=== PATIENT | male | born 1950 | race Caucasian/White ===

== ENCOUNTER → 2021-07-13 | Day surgery (SDC) | payer MEDICARE, OTHER ==
[~2021-07-13] MED LIST: ASPIRIN EC81 MG PO; GLUCOPHAGE 850850 MG PO; SIMVASTATIN20 MG PO; SPIRONOLACTONE25 MG PO; ZETIA10 MG PO
== END | disposition home or self-care (01) ==
LOC: OR 06:37
DX: D12.2 Benign neoplasm of ascending colon (principal); D12.4 Benign neoplasm of descending colon; D12.3 Benign neoplasm of transverse colon; D12.8 Benign neoplasm of rectum; K59.09 Other constipation; K29.70 Gastritis, unspecified, without bleeding; K64.1 Second degree hemorrhoids; K63.3 Ulcer of intestine; B96.81 Helicobacter pylori [H. pylori] as the cause of diseases classified elsewhere; Z20.822 Contact with and (suspected) exposure to COVID-19; R63.4 Abnormal weight loss; I25.10 Atherosclerotic heart disease of native coronary artery without angina pectoris; I50.9 Heart failure, unspecified; E78.5 Hyperlipidemia, unspecified; J44.9 Chronic obstructive pulmonary disease, unspecified; E11.9 Type 2 diabetes mellitus without complications; F17.200 Nicotine dependence, unspecified, uncomplicated; E78.00 Pure hypercholesterolemia, unspecified; Z95.5 Presence of coronary angioplasty implant and graft; Z68.32 Body mass index [BMI] 32.0-32.9, adult; Z79.82 Long term (current) use of aspirin; Z79.84 Long term (current) use of oral hypoglycemic drugs; Z79.899 Other long term (current) drug therapy
CPT/HCPCS: 82962; J2704; J7040; U0002

== ENCOUNTER → 2021-07-17 | Outpatient (CLI) | payer MEDICARE, OTHER | LOC: CT 07-13 11:00 | DX: K85.90 Acute pancreatitis without necrosis or infection, unspecified (principal); K86.9 Disease of pancreas, unspecified; K86.89 Other specified diseases of pancreas; I82.890 Acute embolism and thrombosis of other specified veins; R93.89 Abnormal findings on diagnostic imaging of other specified body structures; N28.9 Disorder of kidney and ureter, unspecified | CPT/HCPCS: 36415; 74170; 82565; 84520; Q9967 ==

== ENCOUNTER → 2021-08-01 | Outpatient (CLI) | payer MEDICARE, OTHER | LOC: CT 07-26 10:30 | DX: C18.9 Malignant neoplasm of colon, unspecified (principal); G95.89 Other specified diseases of spinal cord | CPT/HCPCS: 71260; 72193; Q9967 ==